=== PATIENT | male | born 1975 | race Caucasian/White ===

== ENCOUNTER 2017-11-14 11:11 | Emergency (ER) | payer BC ==
[2017-11-14 11:16] VITALS: BMI 38.3
--- NOTE | 2017-11-14 11:49 | ED PDOC ---
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 Patient reports he tripped on the ground and twisted his right ankle and states having a sharp pain and right ankle swelling. He has no other injuries or pain including head injury. Denies CP, dizziness, and LOC. He indicates he was able to stand up and put weight on his right ankle. No medications were taken and no ice was placed after injury. Patient has no other complaints. PMD: [facility] Past Medical History Reviewed: Historical Data, Nursing Documentation, Vital Signs Vital Signs: Last Vital Signs Temp 100 F H 11/14/17 11:15 Pulse 93 H 11/14/17 11:15 Resp 16 11/14/17 11:15 BP 157/97 H 11/14/17 11:15 Pulse Ox 98 11/14/17 11:15 - Medical History PMH: HTN - Surgical History Surgical History: No Surg Hx - Family History Family History: States: Unknown Family Hx - Home Medications Home Medications: Ambulatory Orders Medication Instructions Recorded Ibuprofen [Motrin] 600 mg PO TID PRN #30 tab 11/14/17 - Allergies Allergies/Adverse Reactions: Allergies Allergy/AdvReac Type Severity Reaction Status Date / Time No Known Allergies Allergy Verified 11/14/17 11:31 Review of Systems ROS Statement: Except As Marked, All Systems Reviewed And Found Negative Cardiovascular: Negative for: Chest Pain Musculoskeletal: Positive for: Other (Right ankle pain) Neurological: Negative for: Dizziness, Other (LOC) Physical Exam - Reviewed Nursing Documentation Reviewed: Yes Vital Signs Reviewed: Yes - Physical Exam Appears: Positive for: Non-toxic, No Acute Distress Head Exam: Positive for: ATRAUMATIC, NORMOCEPHALIC Skin: Positive for: Normal Color, Warm, Dry Eye Exam: Positive for: Normal appearance, EOMI Neck: Positive for: Normal, Painless ROM Extremity: Positive for: Normal ROM, Capillary Refill (normal), Other (Swelling and tenderness on right lateral aspect of right ankle with full ROM with pain, normal pulses, and no deformity) Neurologic/Psych: Positive for: Alert, Oriented, Gait (steady). Negative for: Motor/Sensory Deficits - ECG O2 Sat by Pulse Oximetry: 98 (RA) Pulse Ox Interpretation: Normal Medical Decision Making Medical Decision Making: Initial Impression: Ankle injury Differentials: Ankle fracture, dislocation, ankle sprain Initial Plan: --Ibuprofen 600mg PO --Right ankle X-ray 12:18 Right Ankle X-ray FINDINGS: BONES: No acute fracture. Ununited old fracture or secondary ossification center at tip of medial malleolus. JOINTS: Normal. No osteoarthritis. Ankle mortise maintained. Talar dome intact SOFT TISSUES: Normal. OTHER FINDINGS: None. IMPRESSION: No acute fracture. Scribe Attestation: Documented by Davy Triplett acting as a scribe for Alan Solorio MD. Provider Scribe Attestation: All medical record entries made by the Scribe were at my direction and personally dictated by me. I have reviewed the chart and agree that the record accurately reflects my personal performance of the history, physical exam, medical decision making, and the department course for this patient. I have also personally directed, reviewed, and agree with the discharge instructions and disposition. Disposition - Clinical Impression Clinical Impression: Ankle injury - Patient ED Disposition Is Patient to be Admitted: No Doctor Will See Patient In The: Office Counseled Patient/Family Regarding: Studies Performed, Diagnosis, Need For Followup - Disposition Referrals: Podiatry Clinic [Outside] Disposition: Routine/Home Disposition Time: 19:33 Condition: GOOD Additional Instructions: PEGGY AVELAR, thank you for letting us take care of you today. Your provider was Alan Solorio MD and you were treated for WC: FALL. The emergency medical care you received today was directed at your acute symptoms. If you were prescribed any medication, please fill it and take as directed. It may take several days for your symptoms to resolve. Return to the Emergency Department if your symptoms worsen, do not improve, or if you have any other problems. Please contact your doctor or call one of the physicians/clinics you have been referred to that are listed on the Patient Visit Information form that is included in your discharge packet. Bring any paperwork you were given at discharge with you along with any medications you are taking to your follow up visit. Our treatment cannot replace ongoing medical care by a primary care provider outside of the emergency department. Thank you for allowing the [facility] team to be part of your care today. If you had an X-Ray or CT scan: A Radiologist will review the ED reading if any change in treatment is needed we will contact you. If you had a blood, urine, or wound culture: It will take several days for the results, if any change in treatment is needed we will contact you. If you had an STI test: It will take 48 hours for the results. Please call after 1 week if you have not heard back. Prescriptions: Ibuprofen [Motrin] 600 mg PO TID PRN #30 tab PRN Reason: Pain, Severe (8-10) Instructions: Ankle Sprain
--- NOTE | 2017-11-14 12:20 | RAD ---
Date of service: 11/14/2017 PROCEDURE: Right Ankle Radiographs. HISTORY: ankle pain injury COMPARISON: None FINDINGS: BONES: No acute fracture. Ununited old fracture or secondary ossification center at tip of medial malleolus. JOINTS: Normal. No osteoarthritis. Ankle mortise maintained. Talar dome intact SOFT TISSUES: Normal. OTHER FINDINGS: None. IMPRESSION: No acute fracture.
[2017-11-14 13:59] VITALS: BP 151/95; PULSE 74; RESP 18; TEMP 98.7
[2017-11-15 19:34] VITALS: O2SAT 98
== END 2017-11-14 14:23 | disposition home or self-care (01) ==
LOC: H.ER 11:11
DX: S99.911A Unspecified injury of right ankle, initial encounter (principal); X50.9XXA Other and unspecified overexertion or strenuous movements or postures, initial encounter; Y99.0 Civilian activity done for income or pay; I10 Essential (primary) hypertension